=== PATIENT | female | born 1930 | race Caucasian/White ===

== ENCOUNTER 2017-06-18 11:18 | Inpatient (IN) ==
[2017-06-18] MEDS ORDERED: Albuterol 2.5 MG/3 ML NEBULIZER IH ONE (11:37)
[2017-06-18] MEDS ORDERED: methylPREDNISolone 125 MG/2 ML VIAL IVP ONE (11:37)
--- NOTE | 2017-06-18 11:41 | Emergency Department Note ---
Disposition Clinical Impression: COPD exacerbation, Acute bronchitis Disposition: Home, Self-Care Condition: Good Referrals: Daniela Corral MD [Primary Care Provider] - Forms: ED Satisfaction Letter URI/Sore Throat HPI - General Chief Complaint: ED Upper Respiratory Infection Stated Complaint: trouble breathing Time Seen by Provider: 06/18/17 11:21 Source: patient, EMS Mode of arrival: private vehicle Limitations: no limitations Nursing Notes Reviewed: Yes Vital Signs Reviewed: Yes - History of Present Illness HPI Narrative: 86-year-old female presents to the emergency department for evaluation of difficulty breathing, productive cough of yellow sputum, fever and chills, and runny nose. Patient's ability symptoms for last 4 days. Fever started approximately 24 hours ago. She complains of discomfort located to the left lateral area of her chest. Patient has a known history of COPD. She also had a myocardial infarction a few months ago. He should not states no active chest pain this time. She denies any abdominal pain or nausea or vomiting. - Related Data Home Medications Medication Instructions Recorded Confirmed Aspirin 81 mg PO DAILY 10/01/16 06/18/17 Famotidine [Heartburn Prevention] 20 mg PO DAILY 10/01/16 06/18/17 Levothyroxine [Synthroid] 50 mcg PO 0630 10/01/16 06/18/17 Lisinopril [Zestril] 5 mg PO DAILY 10/01/16 06/18/17 Loratadine [Claritin] 10 mg PO DAILY 10/01/16 06/18/17 Simvastatin [Zocor] 40 mg PO HS 10/01/16 06/18/17 Albuterol Sulfate [Proair Hfa] 2 puff IH Q4H PRN 10/12/16 06/18/17 Budesonide/Formoterol 160/4.5 2 puff IH BIDR 10/12/16 06/18/17 [Symbicort 160/4.5] Ipratropium/Albuterol Neb [Duoneb] 3 ml IH Q6HR 10/12/16 06/18/17 Oxygen 1 each .ROUTE AD 10/12/16 06/18/17 LORazepam [Ativan] 1 mg PO TID PRN 06/18/17 06/18/17 Previous Rx's Medication Instructions Recorded Metoprolol [Lopressor] 50 mg PO BID #30 tablet 10/18/16 Allergies Allergy/AdvReac Type Severity Reaction Status Date / Time Penicillins Allergy Hives Verified 06/18/17 11:34 Sulfa (Sulfonamide Allergy Hives Verified 06/18/17 11:34 Antibiotics) Review of Systems: Constitutional: See history of present illness HENT: See history of present illness Eyes: [Negative for discharge.] Respiratory: see history of present illness Cardiovascular: See history of present illness Gastrointestinal: [Negative for nausea, vomiting, abdominal pain and diarrhea.] Endocrine: [Negative for excessive thirst,urination] Genitourinary: [Negative for dysuria and frequency.] Musculoskeletal: [Negative for myalgias and arthralgias.] Skin: [Negative for rash.] Neurological: [Negative for dizziness, localized weakness and headaches.] Psychiatric/Behavioral: [Negative for nervous/anxious.] All other systems reviewed and are negative. All systems ED: reviewed and negative except as stated. Review of Systems: As Per HPI URI PMH - Past Medical History Medical history: Reports: arthritis, COPD, coronary artery disease, DVT, GERD, hyperlipidemia, hypertension, myocardial infarction, osteoporosis, thyroid disease, other Surgical history: Reports: appendectomy, cholecystectomy, orthopedic, other, other Psychiatric history: Reports: anxiety, other [employer] history: Reports: non-contributory - Social History Smoking Status: Former smoker Alcohol use: Reports: none Drug use: Reports: none Physical Exam Constitutional: Patient is alert, healthy, well-nourished, comfortable and cooperative. . The patient appears nontoxic. HENT: Head: Normocephalic and atraumatic. Right Ear: External ear normal. Left Ear: External ear normal. Nose: Mucous membranes are erythematous with some serous discharge Mouth/Throat: Mucous membranes show [good hydration. Posterior erythema and drainage is noted with no significant tonsillar enlargement or exudates Eyes: Conjunctivae and EOM are normal. Pupils are round and equal. Right eye exhibits no discharge. Left eye exhibits no discharge. Neck: Normal range of motion and phonation normal. Neck supple. Pulmonary/Chest: Effort normal. No stridor. No tachypnea. No respiratory distress. Breath sounds are equal bilaterally with few upper airway noises and few rhonchi, there are diffuse wheezes heard throughout all lung catherine. I hear no obvious rales. Musculoskeletal: Normal range of motion of all unaffected extremeties. Neurological: Patient is alert and awake. Patient moves all 4 extremities equally. There is no atrophy and no tremor. No gross cranial nerve deficit and there exhibits normal muscle tone. Coordination normal. Skin: Skin is warm and dry. No rash noted. No erythema. Psychiatric: Patient has a normal mood and affect. Course Course Narrative: Patient repeat lung examination continues to have significant wheezes. I have discussed the case with Dr. Little who agrees with admission Vital Signs Temperature 100.4 F H 06/18/17 11:24 Pulse Rate 135 06/18/17 11:24 Respiratory Rate 16 06/18/17 11:24 Blood Pressure 131/68 06/18/17 11:24 O2 Sat by Pulse Oximetry 100 06/18/17 11:24 Temperature 100.4 F H 06/18/17 11:24 Pulse Rate 135 06/18/17 11:24 Respiratory Rate 16 06/18/17 11:24 Blood Pressure 131/68 06/18/17 11:24 O2 Sat by Pulse Oximetry 100 06/18/17 11:27 Oxygen Delivery Oxygen Delivery Room Air Upper Respiratory Infection - MDM Narrative Medical decision making narrative: Differential diagnosis includes INFLUENZA, UPPER RESPIRATORY INFECTION, PHARYNIGITIS, BRONCHITIS,TONSILLITIS, MASTOIDITIS, PNEUMONIA, MENINGITIS, PERITONSILLAR ABSCESS, CROUP, SINUSITIS MALIGNANT OTITIS EXTERNA, OTITIS MEDIA OR EPIGLOTTITIS. - Lab Data Lab results reviewed: Yes I reviewed the patient's lab results. Result diagrams: 06/18/17 11:48 06/18/17 11:48 Lab Results 06/18/17 06/18/17 06/18/17 Range/Units 11:48 11:48 11:48 WBC 17.4 H (4.3-11.1) K/mcL RBC 3.35 L (3.82-4.97) M/mcL Hgb 11.5 (11.5-15.4) g/dL Hct 35.5 (35.3-44.9) % MCV 106.0 H (83.0-100.0) fL MCH 34.3 H (28.0-33.3) pg MCHC 32.4 (31.6-35.5) g/dL RDW 12.9 (11.5-14.5) % Plt Count 149 (140-400) K/mcL MPV 11.7 (9.4-12.4) fL Immature Gran % 1.8 (0-4) % Seg Neutrophils % 68.1 % Lymphocytes % 1.4 % Monocytes % 28.4 % Eosinophils % 0.1 % Basophils % 0.2 % Neutrophils # 11.9 H (1.6-8.9) K/mcL Lymphocytes # 0.2 L (0.6-4.6) K/mcL Monocytes # 4.9 H (0.0-1.3) K/mcL Eosinophils # 0.0 (0.0-0.6) K/mcL Basophils # 0.0 (0.0-0.2) K/mcL Sodium 141 (136-145) mEq/L Potassium 4.0 (3.5-4.5) mEq/L Chloride 99 (98-109) mEq/L Carbon Dioxide 33 H (19-29) mEq/L BUN 13 (7-20) mg/dL Creatinine 0.76 (0.57-1.11) mg/dL Est GFR ( Amer) > 60 (> 60) Est GFR (Non-Af Amer) > 60 (> 60) BUN/Creatinine Ratio 17 (6-26) Glucose 175 H (70-99) mg/dL Calculated Osmolality 296 (280-300) Lactic Acid 2.4 H (0.5-2.2) mmol/L Calcium 9.7 (8.6-10.8) mg/dL Troponin I (0-0.03) ng/mL 06/18/17 Range/Units 11:48 WBC (4.3-11.1) K/mcL RBC (3.82-4.97) M/mcL Hgb (11.5-15.4) g/dL Hct (35.3-44.9) % MCV (83.0-100.0) fL MCH (28.0-33.3) pg MCHC (31.6-35.5) g/dL RDW (11.5-14.5) % Plt Count (140-400) K/mcL MPV (9.4-12.4) fL Immature Gran % (0-4) % Seg Neutrophils % % Lymphocytes % % Monocytes % % Eosinophils % % Basophils % % Neutrophils # (1.6-8.9) K/mcL Lymphocytes # (0.6-4.6) K/mcL Monocytes # (0.0-1.3) K/mcL Eosinophils # (0.0-0.6) K/mcL Basophils # (0.0-0.2) K/mcL Sodium (136-145) mEq/L Potassium (3.5-4.5) mEq/L Chloride (98-109) mEq/L Carbon Dioxide (19-29) mEq/L BUN (7-20) mg/dL Creatinine (0.57-1.11) mg/dL Est GFR ( Amer) (> 60) Est GFR (Non-Af Amer) (> 60) BUN/Creatinine Ratio (6-26) Glucose (70-99) mg/dL Calculated Osmolality (280-300) Lactic Acid (0.5-2.2) mmol/L Calcium (8.6-10.8) mg/dL Troponin I 0.01 (0-0.03) ng/mL - Radiology Data Radiology results reviewed: Yes I reviewed the patient's radiology results. XR/XR chest 1V portable IMPRESSION: Emphysematous changes. No definite acute process - EKG Data EKG attestation: Yes I reviewed and interpreted this EKG. EKG shows normal: sinus rhythm, intervals Rate: tachycardia [place]/QRS: left axis deviation Interpretation: nonspecific ST-T wave changes
[2017-06-18 11:57] LABS: Basophils % 0.2 %; Eosinophils % 0.1 %; Hematocrit 35.5 % (35.3-44.9); Hemoglobin 11.5 g/dL (11.5-15.4); Immature Granulocytes % 1.8 % (0-4); Lymphocytes # 0.2 K/mcL (0.6-4.6); Lymphocytes % 1.4 %; Mean Corpuscular HGB Conc 32.4 g/dL (31.6-35.5); Mean Corpuscular Hemoglobin 34.3 pg (28.0-33.3); Mean Platelet Volume 11.7 fL (9.4-12.4); Monocytes # 4.9 K/mcL (0.0-1.3); Monocytes % 28.4 %; Platelet Count 149 K/mcL (140-400); Red Blood Count 3.35 M/mcL (3.82-4.97); Red Cell Distribution Width 12.9 % (11.5-14.5); Segmented Neutrophils % 68.1 %
[2017-06-18 12:07] LABS: Neutrophils # 11.9 K/mcL (1.6-8.9)
[2017-06-18 12:18] LABS: BUN/Creatinine Ratio 17 (6-26); Blood Urea Nitrogen 13 mg/dL (7-20); Calcium 9.7 mg/dL (8.6-10.8); Carbon Dioxide 33 mEq/L (19-29); Chloride 99 mEq/L (98-109); Glucose 175 mg/dL (70-99); Osmolality,Calculated 296 (280-300); Sodium 141 mEq/L (136-145); eGFR For African Americans > 60 (> 60); eGFR For Non-African Americans > 60 (> 60)
[2017-06-18] MEDS: Levofloxacin 500 MG/100 ML 500 MG/100 ML BAG IVPB SCH (12:50)
[2017-06-18] MEDS ORDERED: Albuterol 2.5 MG/3 ML NEBULIZER IH SCH (13:06)
[2017-06-18] MEDS ORDERED: MOM Conc 10 ML UD.LIQ PO PRN (13:06)
[2017-06-18] MEDS ORDERED: Acetaminophen 325 MG TABLET PO PRN (13:06)
[2017-06-18] MEDS ORDERED: Naloxone 0.4 MG/ML INJ IVP PRN (13:06)
[2017-06-18] MEDS ORDERED: Ondansetron 4 MG/2 ML VIAL IVP PRN (13:06)
[2017-06-18] MEDS: methylPREDNISolone 125 MG/2 ML VIAL IVP SCH ×2 (16:11→22:49)
[2017-06-18] MEDS: 0.9 % Sodium Chloride 1,000 ML IVC SCH (16:13)
[2017-06-18] MEDS: Ipratropium/Albuterol Neb 3 ML IH SCH ×2 (16:13→22:45)
--- NOTE | 2017-06-18 16:34 | Internal Med History&Physical ---
Date of Encounter: 06/18/17 Time of Encounter: 15:00 Assessment and Plan (1) SIRS (systemic inflammatory response syndrome) Current visit: Yes Status: Acute White count and heart rate are elevated. Lactic acid is mildly positive. We'll treat her with Levaquin for presumed infectious acute exacerbation of COPD. (2) Acute exacerbation of chronic obstructive airways disease Current visit: No Status: Acute So far she has responded well in the ED to treatment. She's back down to her home baseline of 3 L of O2. At the time that I see her she drops down to 90% sat just with minimal movements or conversation in her hospital room. She does not have have any dyspnea to conversation and no dyspnea at rest. There is no wheezing on exam. Overall she is moving air comfortably. She feels subjectively that she is much better. (3) Hypothyroidism (acquired) Current visit: No Status: Acute Continue replacement. (4) Physical deconditioning Current visit: No Status: Chronic She says she is significantly weaker than her baseline due to being ill the last 3-4 days. Her appetite has been poor. We'll see how she rallies here in the hospital here with treatment. (5) Leukocytosis Current visit: No Status: Resolved Likely due to an infectious etiology. She may well have a gram-negative organism and we are covering her with Levaquin. Qualifiers: Leukocytosis type: unspecified Qualified Code(s): D72.829 - Elevated white blood cell count, unspecified (6) Tachycardia Current visit: No Status: Resolved This is consistent with her inflammatory response syndrome and presumed sepsis.I looked at her EKG tracing. Heart rate is 121. She has left axis deviation of -44 but no evidence for left ventricular hypertrophy or inferior wall [place]. Internal Medicine - H&P: HPI Admitted From: Home Plans for Post Hospital Care: Home History of present illness: Ms. Jiang is an 86 year old female who presents with cough and shortness of breath of 3 days' duration. The patient said she was fairly stable until that point by her response. She reports she's had difficulty breathing and a productive cough bringing up yellow sputum. She had a subjective fever but she says the highest temperature she had was 99 "point something". She states she's had sweat and runny nose. He says a few months she fell and banged her left ribs. She's had intermittent left lateral chest pain since she started her cough a few days ago. She was seen in Dr. Corral's office on June 13 for routine visit. She was noted to have bilateral lower extremity edema at that time and venous Dopplers of lower extremities was ordered that patient did not go to get them and she says the swelling has resolved spontaneously. She reports that previously when she was not hospital she got too much IV fluid and had to get some diuretic to help her breathe. She uses home oxygen usually at 3 L. She had a history of DVT in 2008 and had negative venous Dopplers in 2010. Past Med Surg Social Fam HX - Past Medical History Medical history: arthritis, COPD, coronary artery disease, DVT, GERD, hyperlipidemia, hypertension, myocardial infarction (She had positive troponin in November 2015 during a hospital stay for COPD exacerbation and was felt to have a non-STEMI.), osteoporosis, thyroid disease, other Psychiatric history: anxiety, other - Past Surgical History Surgical History: appendectomy, cholecystectomy, orthopedic, other, other - Social History Smoking Status: Former smoker Smokeless Tobacco Status: No Alcohol use: none Drug use: none Occupational status: unemployed Current living situation: Home - Independent (She lives alone but her grandson lives indoors down. She says grandson physically checks on her about 5 or 6 times per day. He is the one who noted she didn't look good today and convinced her to come to the hospital for evaluation.) Activity Level: Independent ambulation Recent Out of Country Travel Within the Last 8 Weeks: No Exposure or Possible Exposure to Illness During Travel: No - Family History Father Living Status: Hx Family Cancer: Yes (prostate) Mother Living Status: Hx Family Cardiac Disorders: Yes (CHF) Hx Family Cancer: Yes (colon cancer) Sister Living Status: Hx Family Cancer: Yes (breast) Internal Medicine - H&P: Meds Aspirin 81 mg PO DAILY 10/01/16 [History] Famotidine [Heartburn Prevention] 20 mg PO DAILY 10/01/16 [History] Levothyroxine [Synthroid] 50 mcg PO 0630 10/01/16 [History] Lisinopril [Zestril] 5 mg PO DAILY 10/01/16 [History] Loratadine [Claritin] 10 mg PO DAILY 10/01/16 [History] Simvastatin [Zocor] 40 mg PO HS 10/01/16 [History] Albuterol Sulfate [Proair Hfa] 2 puff IH Q4H PRN 10/12/16 [History] Budesonide/Formoterol 160/4.5 [Symbicort 160/4.5] 2 puff IH BIDR 10/12/16 [ History] Ipratropium/Albuterol Neb [Duoneb] 3 ml IH Q6HR 10/12/16 [History] Oxygen 1 each .ROUTE AD 10/12/16 [History] Metoprolol [Lopressor] 50 mg PO BID #30 tablet 10/18/16 [Rx] LORazepam [Ativan] 1 mg PO TID PRN 06/18/17 [History] 3 Allergy/AdvReac Type Severity Reaction Status Date / Time Penicillins Allergy Hives Verified 06/18/17 11:34 Sulfa (Sulfonamide Allergy Hives Verified 06/18/17 11:34 Antibiotics) All Systems PM: A 10-system review of systems was performed and is negative for pertinent findings except as documented above in the HPI. - Constitutional Constitutional: as per HPI, anorexia (She said she hasn't felt like eating much in the last 3 days. She denies abdominal pain but says she just hasn't felt well and isn't eating. She's had small amount of crackers and soup and some other liquids.), chills, excessive sweating, fatigue, fever(s), falls (Previous history of falls.) - EENT Eyes: no change in vision, no discharge, no pain, no photophobia Ears: no ear pain Nose, mouth and throat: as per HPI, no mouth pain, no neck pain, no sinus pain - Cardiovascular Cardiovascular ROS IM: chest pain (Left lateral chest wall pain as above.), dyspnea on exertion, edema (This was transient as above.), no syncope - Respiratory Respiratory: as per HPI, cough, dyspnea, pain on inspiration, change in phlegm color, pain with cough - Gastrointestinal Gastrointestinal: no abdominal pain, no constipation, no cramping, no diarrhea, no hematochezia, no loose stools, no melena, no vomiting - Genitourinary Genitourinary: no flank pain, no pelvic pain - Musculoskeletal Musculoskeletal ROS IM: no joint swelling - Integumentary Integumentary IM: no new lesions - Neurological Neurological ROS: weakness (Generalized) - Psychiatric Psychiatric: abnormal sleep pattern - Endocrine Endocrine IM: fatigue - Hematologic/Lymphatic Hematologic/Lymphatic: no easy bleeding - Allergic/Immunologic Allergic/Immunologic: wheezing - Constitutional Vitals: Temp Pulse Resp BP Pulse Ox 98.5 F 93 16 133/73 98 06/18/17 13:41 06/18/17 13:41 06/18/17 13:15 06/18/17 13:41 06/18/17 13:41 General appearance: Present: pleasant (Alert and oriented), no acute distress, answers questions appropriately - Eye Eye exam: Present: EOMI, normal appearance, PERRL, conjuntiva pink, sclera anicteric. Absent: conjunctival injection, nystagmus, periorbital swelling Pupils: Present: PERRL - Neck Neck exam general surgery: Present: supple, trachea midline. Absent: lymphadenopathy, tenderness - Respiratory Respiratory exam: Present: rhonchi (She has mild scattered rhonchi. She tells me that she's breathing much better now than when she first came to the emergency department.). Absent: accessory muscle use, decreased breath sounds, prolonged expiratory phase, rales, respiratory distress, wheezes - Cardiovascular Cardiovascular exam: Present: irregular rhythm (Mildly irregular at times and at other times seems quite regular.), RRR, +S1, +S2, tachycardia. Absent: diastolic murmur, gallop, rubs, systolic murmur - GI/Abdominal GI/Abdominal exam: Present: soft, no peritoneal signs. Absent: distended, guarding, mass, pulsatile mass, rebound, splenomegaly, tenderness - Extremities Exam Extremities exam: Present: warm, radial pulses palpable and symmetrical. Absent : calf tenderness (No lower extremity edema or bruising noted, Mandie the head nurse confirms that with me.), cyanotic, pedal edema Internal Med - H&P Results - Labs CBC & Chem 7: 06/18/17 11:48 06/18/17 11:48 - EKG Data Rate: tachycardia
[2017-06-18] MEDS: Budesonide/Formoterol 160/4.5 MDI IH SCH (22:45)
[2017-06-18] MEDS: *HR* LORazepam 1 MG TABLET PO PRN (22:52)
[2017-06-19] MEDS: 0.9 % Sodium Chloride 1,000 ML IVC SCH (02:26)
[2017-06-19] MEDS: Ipratropium/Albuterol Neb 3 ML IH SCH ×4 (05:01→22:10)
[2017-06-19 05:12] LABS: Basophils % 0.1 %; Hemoglobin 10.1 g/dL (11.5-15.4); Lymphocytes # 0.3 K/mcL (0.6-4.6); Lymphocytes % 4.1 %; Mean Corpuscular HGB Conc 31.6 g/dL (31.6-35.5); Mean Corpuscular Hemoglobin 33.4 pg (28.0-33.3); Mean Platelet Volume 11.5 fL (9.4-12.4); Monocytes # 0.4 K/mcL (0.0-1.3); Monocytes % 5.2 %; Neutrophils # 6.5 K/mcL (1.6-8.9); Platelet Count 143 K/mcL (140-400); Red Blood Count 3.02 M/mcL (3.82-4.97); Red Cell Distribution Width 12.8 % (11.5-14.5); Segmented Neutrophils % 89.6 %
[2017-06-19] MEDS: methylPREDNISolone 125 MG/2 ML VIAL IVP SCH ×3 (06:25→21:56)
[2017-06-19] MEDS: *HR* Enoxaparin 40 MG/0.4 ML SYRINGE SQ SCH (06:45)
[2017-06-19] MEDS: Albuterol 2.5 MG/3 ML NEBULIZER IH PRN ×2 (06:45→14:39)
[2017-06-19] MEDS ORDERED: *HR* Enoxaparin 30 MG/0.3 ML SYRINGE SQ SCH (07:00)
[2017-06-19] MEDS: Famotidine 20 MG TABLET PO SCH (09:19)
[2017-06-19] MEDS: Aspirin 81 MG TAB.CHEW PO SCH (09:19)
[2017-06-19] MEDS: Loratadine 10 MG TABLET PO SCH (09:19)
[2017-06-19] MEDS: Budesonide/Formoterol 160/4.5 MDI IH SCH ×2 (09:31→22:15)
[2017-06-19 09:41] LABS: BUN/Creatinine Ratio 23 (6-26); Blood Urea Nitrogen 15 mg/dL (7-20); Calcium 8.9 mg/dL (8.6-10.8); Carbon Dioxide 27 mEq/L (19-29); Chloride 107 mEq/L (98-109); Glucose 152 mg/dL (70-99); Osmolality,Calculated 296 (280-300); Potassium 4.6 mEq/L (3.5-4.5); Sodium 141 mEq/L (136-145); eGFR For African Americans > 60 (> 60); eGFR For Non-African Americans > 60 (> 60)
[2017-06-19] MEDS: *HR* LORazepam 1 MG TABLET PO PRN ×2 (11:15→22:15)
--- NOTE | 2017-06-19 16:19 | Internal Med Progress Note ---
Date of Encounter: 06/19/17 Time of Encounter: 06:30 - Assessment and plan (1) SIRS (systemic inflammatory response syndrome) Current Visit: Yes Status: Acute Assessment and plan: Vitals are stable. Continue Levaquin. (2) Acute exacerbation of chronic obstructive airways disease Current Visit: No Status: Acute Assessment and plan: Not significantly improved this point. We will continue treatment with Levaquin and her other regimen. She tells me "I've been sick for a long time, it will take me some time to get better." (3) Hypothyroidism (acquired) Current Visit: No Status: Acute Assessment and plan: On replacement. (4) Physical deconditioning Current Visit: No Status: Chronic Assessment and plan: She is still weak and less functional than her baseline. Hopefully she will improve enough to get home. (5) Leukocytosis Current Visit: No Status: Resolved Assessment and plan: White count went from 17.4-7.3, this is a good indication that she's been treated effectively. Qualifiers: Leukocytosis type: unspecified Qualified Code(s): D72.829 - Elevated white blood cell count, unspecified (6) Tachycardia Current Visit: No Status: Resolved Assessment and plan: Improved to a heart rate of 99 today. - Time Spent With Patient Greater than 35 minutes - Subjective Interval history: She feels her cough is perhaps a little worse. She feels wheezes at times with the cough. It is nonproductive by her report. She says her O2 sat down to 84% when they were changing her adult diaper. She didn't know she had wet it is feels she has bladder incontinence with coughing. She denies chest pain or shortness of breath. - Constitutional Vitals: Vitals are unremarkable. Temp Pulse Resp BP Pulse Ox 98.7 F 99 16 136/69 98 06/19/17 11:39 06/19/17 11:39 06/19/17 11:39 06/19/17 11:39 06/19/17 11:39 General appearance: Present: cooperative, A&O X 3, pleasant (Alert and oriented) , no acute distress, answers questions appropriately - Respiratory Respiratory exam: Present: CTAB. Absent: accessory muscle use, rales, rhonchi, wheezes Additional comments: Overall clear but has a wheezy nonproductive cough. - Cardiovascular Cardiovascular exam: Present: RRR, +S1, +S2. Absent: diastolic murmur, gallop, rubs, systolic murmur - GI/Abdominal GI/Abdominal exam: Present: normal bowel sounds, soft, no peritoneal signs. Absent: distended, tenderness - Extremities Exam Extremities exam: Present: warm. Absent: calf tenderness, cyanotic, pedal edema Internal Medicine: Result - Labs CBC & Chem 7: 06/19/17 04:47 06/19/17 04:47 Labs: Short CBC 06/19/17 Range/Units 04:47 WBC 7.3 D (4.3-11.1) K/mcL Hgb 10.1 L (11.5-15.4) g/dL Hct 32.0 L (35.3-44.9) % Plt Count 143 (140-400) K/mcL Neutrophils # 6.5 (1.6-8.9) K/mcL BMP 06/19/17 04:47 Sodium 141 Potassium 4.6 H Chloride 107 Carbon Dioxide 27 BUN 15 Creatinine 0.65 Glucose 152 H Calcium 8.9 Consult Discharge Plan - Plan Referrals: Daniela Corral MD [Primary Care Provider] -
[2017-06-20] MEDS: Ipratropium/Albuterol Neb 3 ML IH SCH ×4 (03:34→20:28)
[2017-06-20] MEDS: methylPREDNISolone 125 MG/2 ML VIAL IVP SCH ×3 (05:43→20:21)
[2017-06-20] MEDS: *HR* LORazepam 1 MG TABLET PO PRN ×2 (05:57→21:44)
[2017-06-20 06:08] LABS: Blood Urea Nitrogen 20 mg/dL (7-20); Carbon Dioxide 27 mEq/L (19-29); Chloride 109 mEq/L (98-109); Potassium 3.8 mEq/L (3.5-4.5); Sodium 145 mEq/L (136-145)
[2017-06-20 06:09] LABS: BUN/Creatinine Ratio 30 (6-26); Calcium 9.6 mg/dL (8.6-10.8); Glucose 159 mg/dL (70-99); Osmolality,Calculated 306 (280-300); eGFR For African Americans > 60 (> 60); eGFR For Non-African Americans > 60 (> 60)
[2017-06-20] MEDS: *HR* Enoxaparin 40 MG/0.4 ML SYRINGE SQ SCH (06:16)
[2017-06-20 08:39] LABS: Thyroid Stimulating Hormone 0.497 mcIU/mL (0.340-5.600)
[2017-06-20] MEDS: Famotidine 20 MG TABLET PO SCH (08:54)
[2017-06-20] MEDS: Aspirin 81 MG TAB.CHEW PO SCH (08:54)
[2017-06-20] MEDS: Loratadine 10 MG TABLET PO SCH (08:54)
[2017-06-20] MEDS: Budesonide/Formoterol 160/4.5 MDI IH SCH ×2 (08:55→20:26)
--- NOTE | 2017-06-20 12:08 | Internal Med Progress Note ---
Date of Encounter: 06/20/17 Time of Encounter: 12:00 - Assessment and plan (1) SIRS (systemic inflammatory response syndrome) Current Visit: Yes Status: Acute Assessment and plan: Heart rate is borderline elevated, her blood pressure has been fine. I don't see a lactate back from today it was only mildly elevated initially. White count certainly came down with treatment. Continue Levaquin. (2) Acute exacerbation of chronic obstructive airways disease Current Visit: No Status: Acute Assessment and plan: Symptoms are still prominent. Continue Levaquin and other treatment. She is maintaining her O2 sats. (3) Hypothyroidism (acquired) Current Visit: No Status: Acute Assessment and plan: TSH is therapeutic. Continue replacement. (4) Physical deconditioning Current Visit: No Status: Chronic Assessment and plan: We need to improve or resolve her acute medical problems to improve her deconditioning. (5) Leukocytosis Current Visit: No Status: Resolved Qualifiers: Leukocytosis type: unspecified Qualified Code(s): D72.829 - Elevated white blood cell count, unspecified (6) Tachycardia Current Visit: No Status: Resolved Assessment and plan: Heart rate is borderline elevated. This is not appear to be primarily cardiac problem. We'll continue to treat her pulmonary issues. - Time Spent With Patient Greater than 35 minutes - Subjective Interval history: I saw and examined the patient today. She doesn't feel she is doing much better. Her cough persists. She said she started bringing up some sputum. Was initially clear then turned yellow and is now green. She denies chest pain. She said her cough comes in spasms. She states she has some mild abdominal soreness but it is primarily with coughing. - Constitutional Vitals: Temp Pulse Resp BP Pulse Ox 98.5 F 102 16 130/76 99 06/20/17 08:00 06/20/17 08:00 06/20/17 04:59 06/20/17 08:00 06/20/17 08:00 She has been afebrile. Heart rates and 101-102. Blood pressures are 125/60 and 130/76. O2 sats of 97 and 99% on 3 L nasal. Output greater than intake but was only dropped from 46-45.7 kg. General appearance: Present: cooperative, A&O X 3, pleasant (Alert and oriented) , no acute distress, answers questions appropriately - Respiratory Respiratory exam: Present: decreased breath sounds, prolonged expiratory phase, wheezes. Absent: accessory muscle use, respiratory distress, tachypnea Additional comments: My exam shows she has overall decreased air exchange. There is no dyspnea to conversation. She has more prominent late expiratory wheezing today than yesterday but her rales are much better. - Cardiovascular Cardiovascular exam: Present: RRR, +S1, +S2. Absent: diastolic murmur, gallop, rubs, systolic murmur - GI/Abdominal GI/Abdominal exam: Present: normal bowel sounds, soft, no peritoneal signs. Absent: distended, tenderness - Extremities Exam Extremities exam: Present: warm. Absent: calf tenderness, cyanotic, pedal edema (No pretibial edema.) Internal Medicine: Result - Labs CBC & Chem 7: 06/19/17 04:47 06/20/17 05:10 Labs: Potassium improved from 4.6-3.8. Blood sugars 159. TSH is therapeutic. June 18 cultures demonstrated no growth. [facility] 06/20/17 05:10 Sodium 145 Potassium 3.8 Chloride 109 Carbon Dioxide 27 BUN 20 Creatinine 0.66 Glucose 159 H Calcium 9.6 Consult Discharge Plan - Plan Referrals: Daniela Corral MD [Primary Care Provider] -
[2017-06-20] MEDS: Levofloxacin 500 MG/100 ML 500 MG/100 ML BAG IVPB SCH (14:02)
[2017-06-21] MEDS: methylPREDNISolone 125 MG/2 ML VIAL IVP SCH ×3 (05:33→21:49)
[2017-06-21] MEDS: *HR* Enoxaparin 40 MG/0.4 ML SYRINGE SQ SCH (05:34)
[2017-06-21] MEDS: Ipratropium/Albuterol Neb 3 ML IH SCH ×4 (05:36→21:49)
[2017-06-21] MEDS: Budesonide/Formoterol 160/4.5 MDI IH SCH ×2 (09:03→21:48)
[2017-06-21] MEDS: Famotidine 20 MG TABLET PO SCH (09:49)
[2017-06-21] MEDS: Aspirin 81 MG TAB.CHEW PO SCH (09:49)
[2017-06-21] MEDS: Loratadine 10 MG TABLET PO SCH (09:49)
[2017-06-21] MEDS: *HR* LORazepam 1 MG TABLET PO PRN ×2 (10:05→21:50)
--- NOTE | 2017-06-21 12:50 | Internal Med Progress Note ---
Date of Encounter: 06/21/17 Time of Encounter: 12:43 - Assessment and plan (1) Acute exacerbation of chronic obstructive airways disease Current Visit: Yes Status: Acute Assessment and plan: She feels that her breathing is improved. Her sputum production improved. Oxygen saturations are now in the mid 90s with 3 L per nasal cannula. She still gets easily dyspneic with just going to the bedside commode. I anticipate she will need ongoing fci care and PT and OT to re-gain her ADLs prior to discharge and evaluation for swing bed will be done. Continue with her aggressive nebulizer treatments, IV Solu-Medrol and oxygen. (2) Acute bronchitis Current Visit: Yes Status: Acute Assessment and plan: Likely with her sputum production, leukocytosis, fever she has had bronchitis in addition to exacerbation of COPD. Tachypnea, tachycardia, fever and leukocytosis all improved. She could have had an underlying pneumonia which was occult. At this time we will continue her current regimen Qualifiers: Bronchitis organism: unspecified organism Qualified Code(s): J20.9 - Acute bronchitis, unspecified (3) SIRS (systemic inflammatory response syndrome) Current Visit: Yes Status: Acute Assessment and plan: On admission Dr. Little thought that she may have SIRS with fever, leukocytosis and tachycardia. She is on IV Levaquin. Leukocytosis resolved, tachycardia resolved, blood pressure is normal. Follow-up lactate was supposed to be ordered. I do not see any results and order has been written (4) Fever Current Visit: Yes Status: Acute Assessment and plan: Patient had a fever on admission. No fever since starting the antibiotics. Cultures are negative at this point. Qualifiers: Fever type: unspecified Qualified Code(s): R50.9 - Fever, unspecified (5) Leukocytosis Current Visit: Yes Status: Resolved Assessment and plan: Leukocytosis on admission is now resolved with IV antibiotics and treatment. Follow-up CBC ordered for tomorrow. Qualifiers: Leukocytosis type: unspecified Qualified Code(s): D72.829 - Elevated white blood cell count, unspecified (6) Tachycardia Current Visit: Yes Status: Resolved Assessment and plan: On admission patient had tachycardia. Dr. Little reported she typically had pulse in the 120 range. Now she is in the 80s to 100 range. No angina or CHF symptoms. (7) DVT prophylaxis Current Visit: Yes Status: Acute Assessment and plan: Patient is receiving Lovenox for DVT prophylaxis. She has a history of DVT in the past. Interestingly, venous ultrasounds were ordered recently as she had edema in lower extremities but that resolved and patient canceled that test. Clinically no signs of DVT currently. We will increase her ambulation and activity level. - Subjective Interval history: Patient thinks that she is getting better, able to do a little bit more at this point. But she still gets dyspneic using the bedside commode. She denies any cardiac type chest pain, palpitation, cardiac back pain. She denies lower extremity swelling or pain. She thinks her sputum production has improved. She thinks her breathing is better - Constitutional Vitals: Temp Pulse Resp BP Pulse Ox 98.2 F 104 20 145/79 96 06/21/17 12:00 06/21/17 12:00 06/21/17 12:00 06/21/17 12:00 06/21/17 12:00 General appearance: Present: cooperative, A&O X 3, pleasant (Alert and oriented) , no acute distress, answers questions appropriately - Respiratory Respiratory exam: Present: decreased breath sounds (Diminished breath sounds throughout but clear. Very poor air exchange. Saturations in the mid 90s with oxygen) - Cardiovascular Cardiovascular exam: Present: RRR, +S1, +S2. Absent: systolic murmur - GI/Abdominal GI/Abdominal exam: Present: soft. Absent: mass, tenderness - Extremities Exam Extremities exam: Present: normal capillary refill. Absent: calf tenderness, pedal edema, tenderness - Skin Additional comments: patient has a bruise on both lower shins without complication Internal Medicine: Result - Labs CBC & Chem 7: 06/19/17 04:47 06/20/17 05:10 Labs: No laboratory ordered for today. Previous labs from yesterday reviewed. Consult Discharge Plan - Plan Referrals: Daniela Corral MD [Primary Care Provider] -
--- NOTE | 2017-06-21 15:55 | Electrocardiograph Report ---
[address] [address] Test Date: 2017-06-18 Pat Name: Yu Jiang Department: 2000 Room: 112 Gender: Veneer Department Manager: : [id number] Requested By: Daniela Corral Order Number: [id number] Reading MD: Mukund Santos MD Measurements Intervals [place] Rate: 121 P: 77 SC: 161 QRS: -44 QRSD: 82 T: 77 QT: 296 QTc: 368 Interpretive Statements SINUS TACHYCARDIA MARKED LEFT AXIS DEVIATION Electronically Signed On 06-21-2017 15:53:02 EST by Mukund Santos MD
[2017-06-22] MEDS: Ipratropium/Albuterol Neb 3 ML IH SCH ×2 (05:29→09:00)
[2017-06-22] MEDS: methylPREDNISolone 125 MG/2 ML VIAL IVP SCH ×2 (05:29→13:24)
[2017-06-22] MEDS: *HR* Enoxaparin 40 MG/0.4 ML SYRINGE SQ SCH (05:30)
[2017-06-22 06:06] LABS: Basophils % 0.2 %; Hemoglobin 10.3 g/dL (11.5-15.4); Immature Granulocytes % 5.1 % (0-4); Lymphocytes # 0.4 K/mcL (0.6-4.6); Lymphocytes % 7.2 %; Mean Corpuscular HGB Conc 32.2 g/dL (31.6-35.5); Mean Corpuscular Hemoglobin 33.9 pg (28.0-33.3); Mean Corpuscular Volume 105.3 fL (83.0-100.0); Monocytes # 0.2 K/mcL (0.0-1.3); Monocytes % 3.7 %; Neutrophils # 4.8 K/mcL (1.6-8.9); Platelet Count 207 K/mcL (140-400); Red Blood Count 3.04 M/mcL (3.82-4.97); Red Cell Distribution Width 12.8 % (11.5-14.5); Segmented Neutrophils % 83.8 %
[2017-06-22 06:21] LABS: BUN/Creatinine Ratio 34 (6-26); Blood Urea Nitrogen 22 mg/dL (7-20); Calcium 9.3 mg/dL (8.6-10.8); Carbon Dioxide 32 mEq/L (19-29); Chloride 107 mEq/L (98-109); Glucose 127 mg/dL (70-99); Osmolality,Calculated 305 (280-300); Potassium 4.5 mEq/L (3.5-4.5); Sodium 145 mEq/L (136-145); eGFR For African Americans > 60 (> 60); eGFR For Non-African Americans > 60 (> 60)
[2017-06-22] MEDS: Famotidine 20 MG TABLET PO SCH (08:41)
[2017-06-22] MEDS: Aspirin 81 MG TAB.CHEW PO SCH (08:41)
[2017-06-22] MEDS: Loratadine 10 MG TABLET PO SCH (08:41)
[2017-06-22] MEDS: *HR* LORazepam 1 MG TABLET PO PRN (08:44)
[2017-06-22] MEDS: Budesonide/Formoterol 160/4.5 MDI IH SCH (09:00)
[2017-06-22] MEDS: Levofloxacin 500 MG/100 ML 500 MG/100 ML BAG IVPB SCH (13:24)
--- NOTE | 2017-06-22 13:44 | Internal Med Progress Note ---
Date of Encounter: 06/22/17 - Assessment and plan (1) Acute exacerbation of chronic obstructive airways disease Current Visit: Yes Status: Acute Assessment and plan: She feels that her breathing is improved. Her sputum production improved. Oxygen saturations are now in the mid 90s with 3 L per nasal cannula. She still gets easily dyspneic with just going to the bedside commode. I anticipate she will need ongoing correction care and PT and OT to re-gain her ADLs prior to discharge and evaluation for swing bed will be done. Continue with her aggressive nebulizer treatments, IV Solu-Medrol and oxygen. (2) Hypothyroidism (acquired) Current Visit: No Status: Acute Assessment and plan: TSH is therapeutic. Continue replacement. (3) Anemia Current Visit: No Status: Acute Assessment and plan: stable from prior Qualifiers: Anemia type: unspecified type Qualified Code(s): D64.9 - Anemia, unspecified (4) Chronic obstructive pulmonary disease, unspecified Current Visit: No Status: Chronic Qualifiers: COPD type: unspecified COPD Qualified Code(s): J44.9 - Chronic obstructive pulmonary disease, unspecified (5) History of DVT (deep vein thrombosis) Current Visit: No Status: Chronic Assessment and plan: will continue with the lovenox (6) Physical deconditioning Current Visit: No Status: Chronic Assessment and plan: We need to improve or resolve her acute medical problems to improve her deconditioning.pt ot (7) Leukocytosis Current Visit: Yes Status: Resolved Assessment and plan: Leukocytosis on admission is now resolved with IV antibiotics and treatment. Qualifiers: Leukocytosis type: unspecified Qualified Code(s): D72.829 - Elevated white blood cell count, unspecified - Constitutional Vitals: Temp Pulse Resp BP Pulse Ox 98.4 F 73 16 161/84 98 06/22/17 11:49 06/22/17 11:49 06/22/17 11:49 06/22/17 11:49 06/22/17 11:49 General appearance: Present: cooperative, A&O X 3, pleasant (Alert and oriented) , no acute distress, answers questions appropriately Internal Medicine: Result - Labs CBC & Chem 7: 06/22/17 05:55 06/22/17 05:55 Labs: Short CBC 06/22/17 Range/Units 05:55 WBC 5.7 (4.3-11.1) K/mcL Hgb 10.3 L (11.5-15.4) g/dL Hct 32.0 L (35.3-44.9) % Plt Count 207 (140-400) K/mcL Neutrophils # 4.8 (1.6-8.9) K/mcL [facility] 06/22/17 05:55 Sodium 145 Potassium 4.5 Chloride 107 Carbon Dioxide 32 H BUN 22 H Creatinine 0.64 Glucose 127 H Calcium 9.3 Consult Discharge Plan - Plan Referrals: Daniela Corral MD [Primary Care Provider] -
--- NOTE | 2017-06-22 14:18 | Discharge Summary ---
Date of Encounter: 06/23/17 Time of Encounter: 14:14 - Discharge Diagnosis (1) Acute exacerbation of chronic obstructive airways disease Priority: Primary Status: Acute Comments: sHe was admitted from home for COPD exacerbation she received oxygen duo nebs Solu-Medrol Levaquin. She remained deconditioned and weak she was transferred over to a swing bed and is as it is anticipated she will be here for quite some time (2) Hypothyroidism (acquired) Priority: Secondary Status: Acute Comments: Is been stable some she will continue her home medication (3) Anemia Priority: Secondary Status: Acute Comments: She did have a little decreased probably due to hemodilution. We will continue to follow it has been stable Qualifiers: Anemia type: unspecified type Qualified Code(s): D64.9 - Anemia, unspecified (4) Chronic obstructive pulmonary disease, unspecified Priority: Secondary Status: Chronic Qualifiers: COPD type: COPD with acute exacerbation Qualified Code(s): J44.1 - Chronic obstructive pulmonary disease with (acute) exacerbation (5) History of DVT (deep vein thrombosis) Priority: Secondary Status: Chronic Comments: She is on Lovenox at a prophylactic dose (6) Physical deconditioning Priority: Secondary Status: Chronic Comments: PT and OT was consult that she can really only tolerate 1 therapy in the morning 1 therapy in the afternoon we will admit her to a swing bed to she can continue to receive therapy Delpha get her strong enough to return to her home environment (7) Leukocytosis Priority: Secondary Status: Resolved Comments: Her white count did elevated it did go back down to normal likely due to infection illness and COPD exacerbation Qualifiers: Leukocytosis type: unspecified Qualified Code(s): D72.829 - Elevated white blood cell count, unspecified - Discharge Medications Home Medications: Famotidine [Heartburn Prevention] 20 mg PO DAILY 10/01/16 [History] Levothyroxine [Synthroid] 50 mcg PO 0630 10/01/16 [History] Lisinopril [Zestril] 5 mg PO DAILY 10/01/16 [History] Loratadine [Claritin] 10 mg PO DAILY 10/01/16 [History] Simvastatin [Zocor] 40 mg PO HS 10/01/16 [History] Albuterol Sulfate [Proair Hfa] 2 puff IH Q4H PRN 10/12/16 [History] Budesonide/Formoterol 160/4.5 [Symbicort 160/4.5] 2 puff IH BIDR 10/12/16 [ History] Oxygen 1 each .ROUTE AD 10/12/16 [History] Metoprolol [Lopressor] 50 mg PO BID #30 tablet 10/18/16 [Rx] LORazepam [Ativan] 1 mg PO TID PRN 06/18/17 [History] Acetaminophen [Tylenol] 650 mg PO Q6HR PRN tablet 06/22/17 [Rx] Albuterol Neb [Proventil Neb] 2.5 mg IH Q4H PRN inhsol 06/22/17 [Rx] Aspirin 81 mg PO DAILY tab.chew 06/22/17 [Rx] Docusate [Colace] 100 mg PO BID PRN capsule 06/22/17 [Rx] GuaiFENesin/Dextromethorphan [Robitussin/Dm] 10 ml PO Q4HR PRN udc 06/22/17 [Rx ] Ipratropium/Albuterol Neb [Duoneb] 3 ml IH [id number] inhsol 06/22/17 [Rx] Allergies/Adverse Reactions: 3 Allergy/AdvReac Type Severity Reaction Status Date / Time Penicillins Allergy Hives Verified 06/18/17 11:34 Sulfa (Sulfonamide Allergy Hives Verified 06/18/17 11:34 Antibiotics) Date of admission: 06/18/17 16:17 Primary care physician: Daniela Corral, Consults: 06/21/17 13:06 Consult to Occupational Therapy [CONS] Routine Comment: Evaluate, develop and implement POC Reason for Consult: Please evaluate and treat for deconditioning/ exacerbation of COPD to help regain her ADLs Consult to Physical Therapy [CONS] Routine Comment: Evaluate, develop and implement POC Reason for Consult: Please evaluate and treat for exacerbation of COPD and deconditioning and to help regain ADLs to return home - Patient Status Disposition: Transfer Hospital Swing Bed Condition: Good Functional capacity at discharge: uses cane/walker Overall status at discharge: patient is not back to baseline - Discharge Instructions Instructions: Hypothyroidism (DC), Chronic Obstructive Pulmonary Disease (DC), Sepsis (DC) Follow Up With: Daniela Corral MD [Primary Care Provider] - Hospital course: Ms. Jiang is a 86 year old female Who is admitted from home with a COPD exacerbation she was placed on Levaquin Solu-Medrol DuoNeb's oxygen she was slow to respond she is deconditioned and weak she is unable to ambulate very well we will admit her to a swing bed from here to continue IV Levaquin Solu-Medrol physical therapy and occupational therapy to get her strong enough to continue to her home environment she did have some leukocytosis on admission that did resolve. - Time Spent with Patient Total time spent providing and/or coordinating discharge services: - Constitutional Vitals: Temp Pulse Resp BP Pulse Ox 98.4 F 73 16 161/84 98 06/22/17 11:49 06/22/17 11:49 06/22/17 11:49 06/22/17 11:49 06/22/17 11:49 General appearance: Present: cooperative, A&O X 3, pleasant (Alert and oriented) , no acute distress, answers questions appropriately - Head Head exam: Present: atraumatic, normocephalic - Neck Neck exam general surgery: Present: supple, trachea midline - Respiratory Respiratory exam: Present: decreased breath sounds, prolonged expiratory phase, wheezes - Cardiovascular Cardiovascular exam: Present: RRR, +S1, +S2. Absent: systolic murmur - GI/Abdominal GI/Abdominal exam: Present: normal bowel sounds, soft, no peritoneal signs. Absent: guarding, tenderness - Extremities Exam Extremities exam: Absent: cyanotic, mottling, pedal edema - Skin Skin exam: Present: dry, rash, warm
[2017-06-22 16:36] VITALS: BP 137/63
== END 2017-06-22 16:23 | disposition other institution (70) | DRG 872 ==
LOC: INPGRE 11:18 → EMEROOGRE 11:18 → INPGRE 13:37
PROVIDERS: ADMIT Family Medicine; ATTEND Family Medicine

== ENCOUNTER 2017-06-22 16:43 | Inpatient (IN) ==
[2017-06-22] MEDS ORDERED: Albuterol 2.5 MG/3 ML NEBULIZER IH PRN (17:13)
[2017-06-22] MEDS ORDERED: MOM Conc 10 ML UD.LIQ PO PRN (17:13)
[2017-06-22] MEDS ORDERED: Ondansetron 4 MG/2 ML VIAL IVP PRN (17:24)
[2017-06-22] MEDS: Ipratropium/Albuterol Neb 3 ML IH SCH ×2 (17:46→20:45)
[2017-06-22] MEDS: *HR* LORazepam 1 MG TABLET PO PRN (20:45)
[2017-06-22] MEDS: Budesonide/Formoterol 160/4.5 MDI IH SCH (20:45)
[2017-06-22] MEDS: Acetaminophen 325 MG TABLET PO PRN (22:39)
[2017-06-23] MEDS: Ipratropium/Albuterol Neb 3 ML IH SCH ×4 (03:59→21:50)
[2017-06-23] MEDS: methylPREDNISolone 125 MG/2 ML VIAL IVP SCH ×2 (06:29→16:19)
[2017-06-23] MEDS: *HR* Enoxaparin 40 MG/0.4 ML SYRINGE SQ SCH (06:29)
[2017-06-23] MEDS: Loratadine 10 MG TABLET PO SCH (09:10)
[2017-06-23] MEDS: Aspirin 81 MG TAB.CHEW PO SCH (09:10)
[2017-06-23] MEDS: Famotidine 20 MG TABLET PO SCH (09:10)
[2017-06-23] MEDS: Budesonide/Formoterol 160/4.5 MDI IH SCH ×2 (09:15→19:55)
[2017-06-23] MEDS: *HR* LORazepam 1 MG TABLET PO PRN ×3 (10:38→19:54)
--- NOTE | 2017-06-23 11:59 | Internal Med Progress Note ---
Date of Encounter: 06/23/17 Time of Encounter: 12:20 - Assessment and plan (1) Acute exacerbation of chronic obstructive airways disease Current Visit: No Status: Acute Assessment and plan: yesterday decreased the solumedrol, will continue the duonebs, antibiotic, oxygen (2) Hypothyroidism (acquired) Current Visit: No Status: Acute Assessment and plan: cont home med (3) Anemia Current Visit: No Status: Acute Assessment and plan: stable Qualifiers: Anemia type: unspecified type Qualified Code(s): D64.9 - Anemia, unspecified (4) Chronic obstructive pulmonary disease, unspecified Current Visit: No Status: Chronic Qualifiers: COPD type: COPD with acute exacerbation Qualified Code(s): J44.1 - Chronic obstructive pulmonary disease with (acute) exacerbation (5) History of DVT (deep vein thrombosis) Current Visit: No Status: Chronic Assessment and plan: on lovenox for dvt prevention (6) Physical deconditioning Current Visit: No Status: Chronic Assessment and plan: admitted to a swing bed for pt/ot (7) Leukocytosis Current Visit: No Status: Resolved Qualifiers: Leukocytosis type: unspecified Qualified Code(s): D72.829 - Elevated white blood cell count, unspecified - Subjective Interval history: She is feeling a little bit better stable very tired very weak hard to ambulate uses have energy she short of breath when she gets up and moves. She is coughing she has rhinorrhea and nasal congestion today. Eating okay no nausea vomiting had a bowel movement urination without difficulty. - Constitutional Vitals: Temp Pulse Resp BP Pulse Ox 98.3 F 75 16 149/74 99 06/23/17 07:00 06/23/17 07:00 06/23/17 07:00 06/23/17 07:00 06/23/17 07:00 General appearance: Present: A&O X 3, no acute distress - Head Head exam: Present: atraumatic - Neck Neck exam general surgery: Present: supple, trachea midline - Respiratory Respiratory exam: Present: decreased breath sounds, prolonged expiratory phase, wheezes - Cardiovascular Cardiovascular exam: Present: RRR, +S1, +S2. Absent: systolic murmur - GI/Abdominal GI/Abdominal exam: Present: normal bowel sounds, soft, no peritoneal signs. Absent: mass, tenderness - Extremities Exam Extremities exam: Present: warm. Absent: mottling, pedal edema - Skin Skin exam: Present: dry, warm Consult Discharge Plan - Plan Referrals: Daniela Corral MD [Primary Care Provider] -
[2017-06-24] MEDS: Ipratropium/Albuterol Neb 3 ML IH SCH ×4 (03:37→21:25)
[2017-06-24] MEDS: methylPREDNISolone 125 MG/2 ML VIAL IVP SCH ×2 (04:48→18:23)
[2017-06-24] MEDS: *HR* Enoxaparin 40 MG/0.4 ML SYRINGE SQ SCH (04:48)
--- NOTE | 2017-06-24 06:55 | Internal Med Progress Note ---
Date of Encounter: 06/25/17 Time of Encounter: 06:55 - Assessment and plan (1) Acute exacerbation of chronic obstructive airways disease Current Visit: No Status: Acute Assessment and plan: She is doing better with her breathing. She is been out of bed more now. Tolerating the decrease in her IV steroid dosing. No significant sputum production. She feels better. Saturations are good with her oxygen. We will check a chest x-ray because of changes in the breath sounds on exam. (2) Physical deconditioning Current Visit: Yes Status: Acute Assessment and plan: She is now on a swing bed because of deconditioning and will require PT and OT to get back her ADLs prior to going home. Medically she is stable in this regard. (3) Hypothyroidism (acquired) Current Visit: No Status: Acute (4) DVT prophylaxis Current Visit: No Status: Acute - Subjective Interval history: Patient states that she slept quite well. No coughing spells or dyspnea through the night. Yesterday she has some back pain that was relieved once she rolled off for her back on her side. No cardiac type symptoms. She thinks she is able to do more now and be less dyspneic. She can get to the bedside commode better. She had sputum production yesterday morning, none so far today. She denies any cardiac, GI or symptoms. No pedal edema. She thinks she continues to improve - Constitutional Vitals: Temp Pulse Resp BP Pulse Ox 98.1 F 108 17 149/62 96 06/23/17 19:00 06/23/17 19:00 06/23/17 19:00 06/23/17 19:00 06/23/17 19:00 General appearance: Present: A&O X 3, no acute distress - Respiratory Additional comments: Markedly diminished breath sounds throughout with "hollow" increased breath sounds in right base. No breath sounds in the left base. No dyspnea. No crackles or wheezes. - Cardiovascular Cardiovascular exam: Present: RRR, +S1, +S2. Absent: systolic murmur - GI/Abdominal GI/Abdominal exam: Present: soft. Absent: tenderness - Extremities Exam Extremities exam: Absent: calf tenderness, pedal edema, tenderness Consult Discharge Plan - Plan Referrals: Daniela Corral MD [Primary Care Provider] -
[2017-06-24] MEDS: Budesonide/Formoterol 160/4.5 MDI IH SCH ×2 (09:47→21:21)
[2017-06-24] MEDS: Loratadine 10 MG TABLET PO SCH (09:55)
[2017-06-24] MEDS: Famotidine 20 MG TABLET PO SCH (09:55)
[2017-06-24] MEDS: Aspirin 81 MG TAB.CHEW PO SCH (09:55)
[2017-06-24] MEDS: *HR* LORazepam 1 MG TABLET PO PRN ×3 (10:04→21:21)
[2017-06-24] MEDS: Levofloxacin 500 MG/100 ML 500 MG/100 ML BAG IVPB SCH (15:39)
[2017-06-25] MEDS: Ipratropium/Albuterol Neb 3 ML IH SCH ×4 (04:14→22:12)
[2017-06-25] MEDS: *HR* Enoxaparin 40 MG/0.4 ML SYRINGE SQ SCH (06:02)
[2017-06-25] MEDS: methylPREDNISolone 125 MG/2 ML VIAL IVP SCH ×2 (06:03→18:18)
[2017-06-25] MEDS: *HR* LORazepam 1 MG TABLET PO PRN ×2 (08:22→18:18)
[2017-06-25] MEDS: Aspirin 81 MG TAB.CHEW PO SCH (08:22)
[2017-06-25] MEDS: Famotidine 20 MG TABLET PO SCH (08:22)
[2017-06-25] MEDS: Loratadine 10 MG TABLET PO SCH (08:22)
[2017-06-25] MEDS: Budesonide/Formoterol 160/4.5 MDI IH SCH ×2 (10:43→22:14)
--- NOTE | 2017-06-25 14:26 | Internal Med Progress Note ---
Date of Encounter: 06/25/17 Time of Encounter: 14:20 - Assessment and plan (1) Acute exacerbation of chronic obstructive airways disease Current Visit: No Status: Acute Assessment and plan: She is improving from her acute exacerbation of her chronic COPD. She is able to do much more now that she did when she got admitted. No dyspnea or sputum issues particularly at rest. With walking she does become dyspneic. Hopefully we can increase her exertional level. Continue the same medication. Consider decreasing steroid tomorrow. (2) Physical deconditioning Current Visit: Yes Status: Acute Assessment and plan: Requiring PT and OT for physical deconditioning. She is not back to her baseline. She is showing improvement. Continue the same. (3) Cold feet Current Visit: Yes Status: Acute Assessment and plan: Today her feet are extremely cold on my palpation. She states she does not notice that. She says she has always had cold feet. I have never felt anything quite like this. She has good femoral pulses. She is no history of claudication or pain at rest. Consider arterial Doppler's after the holiday. Not sure we would do anything with this if she is not having claudication though. I do not feel this is an acute thrombotic event though. (4) DVT prophylaxis Current Visit: No Status: Acute - Subjective Interval history: She thinks she continues to improve. It was reported that she walked all the way down the end of the batres. She had to stop at the nurses desk because of dyspnea but had quick recovery. She maintain her saturations okay. She denies any cardiac type chest pain. She feels better overall. She is now using the toilet rather than the bedside commode. No significant sputum production now. - Constitutional Vitals: Temp Pulse Resp BP Pulse Ox 98.0 F 65 16 133/74 99 06/25/17 11:57 06/25/17 11:57 06/25/17 11:57 06/25/17 11:57 06/25/17 11:57 General appearance: Present: A&O X 3, no acute distress - Respiratory Respiratory exam: Present: decreased breath sounds (Somewhat hollow sounding breath sounds in right base and diminished in the left. Chest x-ray showed no acute changes.). Absent: respiratory distress - Cardiovascular Cardiovascular exam: Present: RRR, +S1, +S2 - GI/Abdominal GI/Abdominal exam: Present: soft. Absent: mass, tenderness - Extremities Exam Additional comments: extremely cold and cyanotic feet and lower ankles. She states she feels 5. I could not feel any pulses there. She does have good femoral pulses. States her feet avoids being cold. She denies any claudication as well as pain at rest. Internal Medicine: Result - Diagnostic Studies Chest x-ray Additional comments: Chest x-ray showed no acute change. No significant differences in the bases compared to auscultation Consult Discharge Plan - Plan Referrals: Daniela Corral MD [Primary Care Provider] -
[2017-06-25] MEDS: Acetaminophen 325 MG TABLET PO PRN (22:31)
[2017-06-26] MEDS: *HR* LORazepam 1 MG TABLET PO PRN ×3 (00:03→18:42)
[2017-06-26] MEDS: Ipratropium/Albuterol Neb 3 ML IH SCH ×4 (04:10→20:40)
[2017-06-26] MEDS: methylPREDNISolone 125 MG/2 ML VIAL IVP SCH (06:20)
[2017-06-26] MEDS: *HR* Enoxaparin 40 MG/0.4 ML SYRINGE SQ SCH (06:20)
[2017-06-26] MEDS: Loratadine 10 MG TABLET PO SCH (09:55)
[2017-06-26] MEDS: Aspirin 81 MG TAB.CHEW PO SCH (09:55)
[2017-06-26] MEDS: Famotidine 20 MG TABLET PO SCH (09:55)
[2017-06-26] MEDS: Acetaminophen 325 MG TABLET PO PRN (09:55)
[2017-06-26] MEDS: Budesonide/Formoterol 160/4.5 MDI IH SCH ×2 (09:56→20:41)
--- NOTE | 2017-06-26 13:08 | Internal Med Progress Note ---
Date of Encounter: 06/26/17 Time of Encounter: 13:02 - Assessment and plan (1) Acute exacerbation of chronic obstructive airways disease Current Visit: No Status: Acute Assessment and plan: Slowly improving for her exacerbation of COPD. We will wean her Solu-Medrol from every 12 hours to daily. Continue with her therapies (2) Physical deconditioning Current Visit: Yes Status: Acute Assessment and plan: She continues to be weak and easily dyspneic. She is not back to baseline. Continue with PT and OT in addition to her pulmonary treatments. (3) Cold feet Current Visit: Yes Status: Acute Assessment and plan: ABIs have been ordered, will likely need arterial Dopplers as well (4) DVT prophylaxis Current Visit: No Status: Acute - Subjective Interval history: She thinks she continues to improve. She is walking to the toilet now. She is spending more time up in a chair. Her appetite is good and she is eating well. No cardiac type chest pain. She is still not back to her baseline. When seated in a chair in her feet are day, her toes and feet are purple and cold. She has no claudication type symptoms. No ankle or pedal edema. She states they are always that way. She has good femoral pulses. ABIs have been ordered - Constitutional Vitals: Temp Pulse Resp BP Pulse Ox 97.6 F 67 16 144/70 100 06/26/17 09:00 06/26/17 09:00 06/26/17 09:00 06/26/17 09:00 06/26/17 09:00 General appearance: Present: A&O X 3, no acute distress Exam: Up in chair, ate all of lunch - Respiratory Respiratory exam: Present: decreased breath sounds, CTAB. Absent: respiratory distress, rhonchi, wheezes - Cardiovascular Cardiovascular exam: Present: RRR, +S1, +S2 - GI/Abdominal GI/Abdominal exam: Present: soft. Absent: tenderness - Extremities Exam Additional comments: cold and cyanoic/purple, nontender. She has good femoral pulses for her age. She is no pain in lower extremities. Consult Discharge Plan - Plan Referrals: Daniela Corral MD [Primary Care Provider] -
[2017-06-26] MEDS: Levofloxacin 500 MG/100 ML 500 MG/100 ML BAG IVPB SCH (13:28)
[2017-06-27] MEDS: *HR* LORazepam 1 MG TABLET PO PRN ×3 (01:53→21:59)
[2017-06-27] MEDS: Ipratropium/Albuterol Neb 3 ML IH SCH ×4 (03:05→21:59)
[2017-06-27] MEDS: Acetaminophen 325 MG TABLET PO PRN ×2 (03:05→20:01)
[2017-06-27 05:30] LABS: Basophils % 0.2 %; Eosinophils % 0.1 %; Hematocrit 32.6 % (35.3-44.9); Hemoglobin 10.4 g/dL (11.5-15.4); Immature Granulocytes % 7.4 % (0-4); Lymphocytes # 1.9 K/mcL (0.6-4.6); Lymphocytes % 11.4 %; Mean Corpuscular HGB Conc 31.9 g/dL (31.6-35.5); Mean Corpuscular Hemoglobin 33.3 pg (28.0-33.3); Mean Corpuscular Volume 104.5 fL (83.0-100.0); Mean Platelet Volume 11.4 fL (9.4-12.4); Monocytes # 1.9 K/mcL (0.0-1.3); Monocytes % 11.2 %; Neutrophils # 11.8 K/mcL (1.6-8.9); Platelet Count 202 K/mcL (140-400); Red Blood Count 3.12 M/mcL (3.82-4.97); Red Cell Distribution Width 13.1 % (11.5-14.5); Segmented Neutrophils % 69.7 %
[2017-06-27 05:43] LABS: BUN/Creatinine Ratio 39 (6-26); Blood Urea Nitrogen 28 mg/dL (7-20); Calcium 9.3 mg/dL (8.6-10.8); Carbon Dioxide 38 mEq/L (19-29); Chloride 95 mEq/L (98-109); Glucose 91 mg/dL (70-99); Osmolality,Calculated 293 (280-300); Potassium 4.6 mEq/L (3.5-4.5); Sodium 139 mEq/L (136-145); eGFR For African Americans > 60 (> 60); eGFR For Non-African Americans > 60 (> 60)
[2017-06-27] MEDS: *HR* Enoxaparin 40 MG/0.4 ML SYRINGE SQ SCH (06:40)
[2017-06-27] MEDS: Aspirin 81 MG TAB.CHEW PO SCH (08:52)
[2017-06-27] MEDS: Famotidine 20 MG TABLET PO SCH (08:52)
[2017-06-27] MEDS: methylPREDNISolone 125 MG/2 ML VIAL IVP SCH (08:52)
[2017-06-27] MEDS: Loratadine 10 MG TABLET PO SCH (08:52)
[2017-06-27] MEDS: Budesonide/Formoterol 160/4.5 MDI IH SCH ×2 (10:55→20:00)
--- NOTE | 2017-06-27 13:03 | Internal Med Progress Note ---
Date of Encounter: 06/27/17 Time of Encounter: 12:58 - Assessment and plan (1) Acute exacerbation of chronic obstructive airways disease Current Visit: No Status: Acute Assessment and plan: Continues with acute exacerbation of COPD. She is weaned down to 1 dose of Solu -Medrol daily. Should be able to taper to oral prednisone soon. She is showing definite improvement. (2) Physical deconditioning Current Visit: Yes Status: Acute Assessment and plan: Continue with PT and OT. They will resume her therapies tomorrow. (3) Cold feet Current Visit: Yes Status: Acute Assessment and plan: ABIs have been ordered and anticipate she will need arterial Dopplers. Currently no pain. No history of claudication. (4) Leukocytosis Current Visit: Yes Status: Acute Assessment and plan: Leukocytosis with a white blood cell count of 16,000 is likely due to the steroids. I do not see any obvious signs of acute infection. Continue same treatment. Qualifiers: Leukocytosis type: unspecified Qualified Code(s): D72.829 - Elevated white blood cell count, unspecified (5) DVT prophylaxis Current Visit: No Status: Acute - Subjective Interval history: Patient thinks that today she is 80% better, getting back to her baseline. She is able to walk to and from the toilet without getting dyspneic. She uses her walker. With therapy she has walked down the batres, stopping at the nurses station to rest briefly. She denies any cardiac type chest pain. She denies any new pulmonary symptoms. She has been eating well. Last night she did not sleep well and was awake until about 3:00 and they gave her medication. She is in good spirits. - Constitutional Vitals: Temp Pulse Resp BP Pulse Ox 97.7 F 71 16 110/64 100 06/27/17 07:14 06/27/17 07:14 06/27/17 07:14 06/27/17 07:14 06/27/17 07:14 General appearance: Present: A&O X 3, no acute distress - Respiratory Respiratory exam: Present: decreased breath sounds, CTAB. Absent: respiratory distress, wheezes, tachypnea - Cardiovascular Cardiovascular exam: Present: RRR, +S1, +S2 - GI/Abdominal GI/Abdominal exam: Present: soft. Absent: tenderness - Extremities Exam Extremities exam: Absent: calf tenderness, pedal edema Additional comments: purplish toes and feet, not quite as cold as yesterday. Cannot appreciate pulses. Non tender Internal Medicine: Result - Labs CBC & Chem 7: 06/27/17 05:15 06/27/17 05:15 Labs: Short CBC WBC elevated, likely from steriods. No obvious signs of infection acutely 06/27/17 Range/Units 05:15 WBC 16.9 H D (4.3-11.1) K/mcL Hgb 10.4 L (11.5-15.4) g/dL Hct 32.6 L (35.3-44.9) % Plt Count 202 (140-400) K/mcL Neutrophils # 11.8 H (1.6-8.9) K/mcL BMP 06/27/17 05:15 Sodium 139 Potassium 4.6 H Chloride 95 L Carbon Dioxide 38 H BUN 28 H Creatinine 0.72 Glucose 91 Calcium 9.3 Consult Discharge Plan - Plan Referrals: Daniela Corral MD [Primary Care Provider] -
[2017-06-28] MEDS: Ipratropium/Albuterol Neb 3 ML IH SCH ×4 (03:29→22:06)
[2017-06-28] MEDS: Acetaminophen 325 MG TABLET PO PRN ×2 (03:29→19:40)
[2017-06-28] MEDS: *HR* Enoxaparin 40 MG/0.4 ML SYRINGE SQ SCH (06:05)
[2017-06-28] MEDS: Budesonide/Formoterol 160/4.5 MDI IH SCH ×2 (08:56→19:39)
[2017-06-28] MEDS: Loratadine 10 MG TABLET PO SCH (09:50)
[2017-06-28] MEDS: Famotidine 20 MG TABLET PO SCH (09:50)
[2017-06-28] MEDS: methylPREDNISolone 125 MG/2 ML VIAL IVP SCH (09:50)
[2017-06-28] MEDS: Aspirin 81 MG TAB.CHEW PO SCH (09:50)
[2017-06-28] MEDS: *HR* LORazepam 1 MG TABLET PO PRN ×3 (09:58→22:06)
--- NOTE | 2017-06-28 12:55 | Internal Med Progress Note ---
Date of Encounter: 06/28/17 Time of Encounter: 16:00 - Assessment and plan (1) Acute exacerbation of chronic obstructive airways disease Current Visit: No Status: Acute Assessment and plan: Continues with acute exacerbation of COPD. . Should be able to taper to oral prednisone soon. She is showing definite improvement. (2) Hypothyroidism (acquired) Current Visit: No Status: Acute Assessment and plan: cont home med (3) Anemia Current Visit: No Status: Acute Assessment and plan: stable Qualifiers: Anemia type: unspecified type Qualified Code(s): D64.9 - Anemia, unspecified (4) Chronic obstructive pulmonary disease, unspecified Current Visit: No Status: Chronic Qualifiers: COPD type: COPD with acute exacerbation Qualified Code(s): J44.1 - Chronic obstructive pulmonary disease with (acute) exacerbation (5) History of DVT (deep vein thrombosis) Current Visit: No Status: Chronic Assessment and plan: on lovenox for dvt prevention (6) Physical deconditioning Current Visit: Yes Status: Acute Assessment and plan: Continue with PT and OT. (7) Leukocytosis Current Visit: Yes Status: Acute Assessment and plan: Leukocytosis with a white blood cell count of 16,000 is likely due to the steroids. I do not see any obvious signs of acute infection. Continue same treatment. Qualifiers: Leukocytosis type: unspecified Qualified Code(s): D72.829 - Elevated white blood cell count, unspecified - Subjective Interval history: She is feeling a little bit better today she is feeling closer to going home. she made it down the batres a few rooms. still sob and tires easily. eating ok. no n/v. bowels ok, no cp. - Constitutional Vitals: Temp Pulse Resp BP Pulse Ox 97.8 F 77 16 115/58 100 06/28/17 07:10 06/28/17 07:10 06/28/17 09:00 06/28/17 07:10 06/28/17 07:10 General appearance: Present: A&O X 3, no acute distress - Head Head exam: Present: atraumatic, normocephalic - Neck Neck exam general surgery: Present: supple, trachea midline - Respiratory Respiratory exam: Present: decreased breath sounds, prolonged expiratory phase - Cardiovascular Cardiovascular exam: Present: RRR. Absent: systolic murmur - GI/Abdominal GI/Abdominal exam: Present: normal bowel sounds, soft, no peritoneal signs. Absent: guarding, mass, tenderness - Extremities Exam Extremities exam: Present: cyanotic, pedal edema, warm Internal Medicine: Result - Labs CBC & Chem 7: 06/27/17 05:15 06/27/17 05:15 Consult Discharge Plan - Plan Referrals: Daniela Corral MD [Primary Care Provider] -
[2017-06-28] MEDS: Levofloxacin 500 MG/100 ML 500 MG/100 ML BAG IVPB SCH ×2 (15:06→15:30)
[2017-06-29] MEDS: *HR* Enoxaparin 40 MG/0.4 ML SYRINGE SQ SCH (04:51)
[2017-06-29] MEDS: Ipratropium/Albuterol Neb 3 ML IH SCH ×3 (04:51→16:45)
[2017-06-29 07:20] VITALS: BP 135/70
[2017-06-29] MEDS: Famotidine 20 MG TABLET PO SCH (08:43)
[2017-06-29] MEDS: Aspirin 81 MG TAB.CHEW PO SCH (08:43)
[2017-06-29] MEDS: Loratadine 10 MG TABLET PO SCH (08:43)
[2017-06-29] MEDS: Budesonide/Formoterol 160/4.5 MDI IH SCH (08:49)
[2017-06-29] MEDS ORDERED: predniSONE 20 MG TABLET PO SCH (09:00)
--- NOTE | 2017-06-29 09:26 | Discharge Summary ---
Date of Encounter: 06/29/17 Time of Encounter: 14:17 - Discharge Diagnosis (1) Acute exacerbation of chronic obstructive airways disease Priority: Primary Status: Acute Comments: She completed a full course of IV Levaquin she was weaned from IV Solu-Medrol down to by mouth prednisone she has severe COPD at baseline she progressed back to her baseline she does not have very much tolerance but that is not passed what her baseline is. She was sent home on oxygen by mouth prednisone her nebulizers and her home MDIs. (2) Hypothyroidism (acquired) Priority: Secondary Status: Acute Comments: Stable baseline continue home medicine (3) Anemia Priority: Secondary Status: Acute Comments: Stable Qualifiers: Anemia type: unspecified type Qualified Code(s): D64.9 - Anemia, unspecified (4) Chronic obstructive pulmonary disease, unspecified Priority: Secondary Status: Chronic Comments: Severe back to baseline she does not have much reserve. Qualifiers: COPD type: COPD with acute exacerbation Qualified Code(s): J44.1 - Chronic obstructive pulmonary disease with (acute) exacerbation (5) History of DVT (deep vein thrombosis) Priority: Secondary Status: Chronic (6) Physical deconditioning Priority: Secondary Status: Acute Comments: She had PT OT she is back at baseline she is very deconditioned she will require transfer back home to get the stairs since is very icy and she is to get up the stairs outside her house. (7) Leukocytosis Priority: Secondary Status: Acute Comments: Likely due to the steroids. Qualifiers: Leukocytosis type: unspecified Qualified Code(s): D72.829 - Elevated white blood cell count, unspecified - Discharge Medications Prescriptions: predniSONE [PredniSONE] 20 mg PO DAILY #26 tablet Home Medications: Famotidine [Heartburn Prevention] 20 mg PO DAILY 10/01/16 [History] Levothyroxine [Synthroid] 50 mcg PO 0630 10/01/16 [History] Lisinopril [Zestril] 5 mg PO DAILY 10/01/16 [History] Loratadine [Claritin] 10 mg PO DAILY 10/01/16 [History] Simvastatin [Zocor] 40 mg PO HS 10/01/16 [History] Albuterol Sulfate [Proair Hfa] 2 puff IH Q4H PRN 10/12/16 [History] Budesonide/Formoterol 160/4.5 [Symbicort 160/4.5] 2 puff IH BIDR 10/12/16 [ History] Oxygen 1 each .ROUTE AD 10/12/16 [History] Metoprolol [Lopressor] 50 mg PO BID #30 tablet 10/18/16 [Rx] LORazepam [Ativan] 1 mg PO TID PRN 06/18/17 [History] Acetaminophen [Tylenol] 650 mg PO Q6HR PRN tablet 06/22/17 [Rx] Albuterol Neb [Proventil Neb] 2.5 mg IH Q4H PRN inhsol 06/22/17 [Rx] Aspirin 81 mg PO DAILY tab.chew 06/22/17 [Rx] Docusate [Colace] 100 mg PO BID PRN capsule 06/22/17 [Rx] GuaiFENesin/Dextromethorphan [Robitussin/Dm] 10 ml PO Q4HR PRN udc 06/22/17 [Rx ] Ipratropium/Albuterol Neb [Duoneb] 3 ml IH [id number] inhsol 06/22/17 [Rx] Metoprolol [Lopressor] 50 mg PO BID tablet 06/29/17 [Rx] predniSONE [PredniSONE] 20 mg PO DAILY #26 tablet 06/29/17 [Rx] Allergies/Adverse Reactions: 3 Allergy/AdvReac Type Severity Reaction Status Date / Time Penicillins Allergy Hives Verified 06/18/17 11:34 Sulfa (Sulfonamide Allergy Hives Verified 06/18/17 11:34 Antibiotics) Procedures/tests Complete & Pending: Procedures Performed prior 72 hours Category Date Time Status KENAN [EV ankle brachial index BI] Routine Y 06/26/17 13:10 Ordered Date of admission: 06/22/17 16:46 Primary care physician: Daniela Corral, Consults: 06/22/17 17:31 Consult to Occupational Therapy [CONS] Routine Comment: continue treatment Reason for Consult: deconditioning Consult to Physical Therapy [CONS] Routine Comment: continue treatment Reason for Consult: deconditioning - Patient Status Disposition: Home Health Service Condition: Fair Functional capacity at discharge: uses cane/walker Overall status at discharge: patient is progressing back to baseline - Discharge Instructions Instructions: Chronic Obstructive Pulmonary Disease (DC) Follow Up With: Danieal Corral MD [Primary Care Provider] - 07/04/17 10:30 am - Diet and Activity Activity: resume usual activities as tolerated, wear oxygen at all times Interval History: She came from home with a cough short of breath wheezing COPD exacerbation she was admitted with given IV Levaquin and Solu-Medrol oxygen DuoNeb's and her home MDIs she did get better she was weaned gradually off the Solu-Medrol to by mouth prednisone which she tolerated she completed a full course of IV Levaquin. That was DC'd. She did develop leukocytosis likely reaction to the steroids. She did not have fever or any other signs of infections. She does have some mottling of her feet when they are dependent ABIs ordered does not be obtained today prior to her going home if likely chronic in nature I doubt they will be allowed intervention that can be done based on her lung status. Have any claudication she does not have any pain in her legs when she walks. She had a lot of physical deconditioning she had physical therapy and occupational therapy will continue that is now patient in the home setting. She progressed back to her baseline she does not have much reserve and she does not have much stamina. Her thyroid and blood pressure remained stable during this admission. Hospital course: Ms. Jiang is a 86 year old female - Time Spent with Patient Total time spent providing and/or coordinating discharge services: - Constitutional Vitals: Temp Pulse Resp BP Pulse Ox 98.2 F 72 16 135/70 93 06/29/17 07:19 06/29/17 07:19 06/29/17 07:19 06/29/17 07:19 06/29/17 07:19 General appearance: Present: A&O X 3, no acute distress - Head Head exam: Present: atraumatic, normocephalic - Neck Neck exam general surgery: Present: supple, trachea midline - Respiratory Respiratory exam: Present: decreased breath sounds, prolonged expiratory phase - Cardiovascular Cardiovascular exam: Present: RRR, +S1, +S2. Absent: systolic murmur - GI/Abdominal GI/Abdominal exam: Present: normal bowel sounds, soft, no peritoneal signs. Absent: mass, tenderness - Extremities Exam Extremities exam: Present: cyanotic (no changefrom prior). Absent: pedal edema - Skin Skin exam: Present: dry, warm. Absent: rash
[2017-06-29] MEDS: Acetaminophen 325 MG TABLET PO PRN (11:14)
--- NOTE | 2017-06-29 14:27 | Physician Discharge Referral ---
Home Health/Hosp Referral Info Transfer to: Home Health Attending Provider: Ellis Provider in Charge Post Discharge: PCP - Diagnosis (1) Acute exacerbation of chronic obstructive airways disease Priority: Primary Status: Acute (2) Hypothyroidism (acquired) Priority: Secondary Status: Acute (3) Anemia Priority: Secondary Status: Acute (4) Chronic obstructive pulmonary disease, unspecified Priority: Secondary Status: Chronic (5) History of DVT (deep vein thrombosis) Priority: Secondary Status: Chronic (6) Physical deconditioning Priority: Secondary Status: Acute (7) Leukocytosis Priority: Secondary Status: Acute - Respiratory Orders Oxygen / L per min Smoking Cessation: Smoking cessation has been advised. For more information, call the [place] Tobacco Quit Line at 6-154-KSZO-NOW. - Diet/Nutrition Diet/Nutrition Orders: Regular - Activity Activity Orders: Up ad edith, Ambulate - Services Needed Following services are medically necessary services: Nursing, Home Health Aide, Physical Therapy, Occupational Therapy - Transfer Medications Prescriptions: predniSONE [PredniSONE] 20 mg PO DAILY #26 tablet Home Medications: Famotidine [Heartburn Prevention] 20 mg PO DAILY 10/01/16 [History] Levothyroxine [Synthroid] 50 mcg PO 0630 10/01/16 [History] Lisinopril [Zestril] 5 mg PO DAILY 10/01/16 [History] Loratadine [Claritin] 10 mg PO DAILY 10/01/16 [History] Simvastatin [Zocor] 40 mg PO HS 10/01/16 [History] Albuterol Sulfate [Proair Hfa] 2 puff IH Q4H PRN 10/12/16 [History] Budesonide/Formoterol 160/4.5 [Symbicort 160/4.5] 2 puff IH BIDR 10/12/16 [ History] Oxygen 1 each .ROUTE AD 10/12/16 [History] Metoprolol [Lopressor] 50 mg PO BID #30 tablet 10/18/16 [Rx] LORazepam [Ativan] 1 mg PO TID PRN 06/18/17 [History] Acetaminophen [Tylenol] 650 mg PO Q6HR PRN tablet 06/22/17 [Rx] Albuterol Neb [Proventil Neb] 2.5 mg IH Q4H PRN inhsol 06/22/17 [Rx] Aspirin 81 mg PO DAILY tab.chew 06/22/17 [Rx] Docusate [Colace] 100 mg PO BID PRN capsule 06/22/17 [Rx] GuaiFENesin/Dextromethorphan [Robitussin/Dm] 10 ml PO Q4HR PRN udc 06/22/17 [Rx ] Ipratropium/Albuterol Neb [Duoneb] 3 ml IH [id number] inhsol 06/22/17 [Rx] Metoprolol [Lopressor] 50 mg PO BID tablet 06/29/17 [Rx] predniSONE [PredniSONE] 20 mg PO DAILY #26 tablet 06/29/17 [Rx] Allergies/Adverse Reactions: 3 Allergy/AdvReac Type Severity Reaction Status Date / Time Penicillins Allergy Hives Verified 06/18/17 11:34 Sulfa (Sulfonamide Allergy Hives Verified 06/18/17 11:34 Antibiotics) Certification: Further, I certify that my clinical findings support that this patient is homebound (i.e. absences from home require considerable and taxing effort and are for medical reasons or [facility] or infrequently or short duration when for other reasons) because: severe copd, very sob with minimal excertion, on oxygen, deconditioning Homebound Reason: Patient requires assistance of a person or device to safely leave home, Leaving home requires considerable and taxing effort due to condition (severe copd) Attestation: My signature below is to certify that this patient is under my care and that I, or nurse practitioner, or a physician's assistant hairstylist working with me, has a face-to -face encounter with this patient.
== END 2017-06-29 17:30 | disposition home health service (06) | DRG 945 ==
LOC: INPGRE 16:46
PROVIDERS: ADMIT Family Medicine; ATTEND Family Medicine